=== PATIENT | female | born 2000 | race Caucasian/White ===

== ENCOUNTER 2023-11-07 08:17 | Emergency (ER) | payer OTHER, SELFPAY ==
[2023-11-07 08:22] VITALS: BP 116/72; PULSE 76; RESP 16; TEMP 37.1; O2SAT 97; BMI 29.1
[2023-11-07] MEDS: ONDANSETRON 2 MG/ML inj 4 MG IVP (09:38)
[2023-11-07] MEDS: 0.9 % SODIUM CHLORIDE 1000 ml 1,000 ML IV ×2 (09:38→10:35)
[2023-11-07 09:48] LABS: Basophils Percent Auto 0.3 % (0.0-3.0); Eosinophils Percent Auto 0.3 % (0.0-7.0); Immature Granulocytes Pct Auto 0.2 %; Lymphocytes Percent Auto 21.9 % (20-44); Mean Corpuscular HGB Conc 34 gm/dL (32-36); Mean Corpuscular Hemoglobin 32 pg (26-34); Mean Corpuscular Volume 93 fL (80-100); Monocytes Percent Auto 4.5 % (0.0-11.0); Neutrophils Percent Auto 72.8 % (42.0-72.0); Platelet Count* 304 K/uL (140-440); RDW Coefficient of Variation % 12.1 % (11.5-15.5); Red Blood Count 4.73 m/uL (4.00-5.20); White Blood Count* 11.21 K/uL (4.50-11.00)
[2023-11-07 09:49] LABS: Slide Review Reflex No
[2023-11-07 10:07] LABS: Albumin* 4.7 g/dL (3.3-5.0); Chloride* 105 mmol/L (96-114); Potassium* 4.3 mmol/L (3.6-5.1); Sodium* 136 mmol/L (135-149)
[2023-11-07 10:09] LABS: Amylase* 77 U/L (18-89); Anion Gap 9 mEq/L (7-15); Carbon Dioxide* 22 mmol/L (20-32); Creatinine* 0.5 mg/dL (0.5-1.5); Est. Creatinine Clearance* 162.42; Estimated Glomerular Filt Rate 134 ml/min
[2023-11-07 10:10] LABS: Alanine Aminotransferase* 22 U/L (4-35); Alkaline Phosphatase* 23 U/L (40-150); Aspartate Amino Transferase* 30 U/L (12-35); Bilirubin Total* 0.7 mg/dL (0.1-1.5); Blood Urea Nitrogen* 7 mg/dL (5-24); Calcium* 10.2 mg/dL (8.4-10.6); Glucose* 76 mg/dL (60-115); Total Protein* 8.3 g/dL (6.0-8.3)
--- NOTE | 2023-11-07 11:03 | ED.NAVMDI ---
HPI - Nausea/Vomiting/Diarrhea General Chief complaint: Nausea/Vomiting Stated complaint: 8 weeks , dehydrated Time Seen by Provider: 11/07/23 08:43 History of Present Illness HPI Narrative: Patient is a 23-year-old woman who is 8 weeks with her 1st child. She has refractory nausea and vomiting but no diarrhea. She has had no vaginal discharge or bleeding. No abdominal pain. She contacted her OB provider and was told to come into the emergency room to be assessed and receive IV fluids. She does have Zofran at home which is not been affected to this point. Patient feels like she may be getting dehydrated. No other complaints or concerns no other issues with her . Related Data Home Medications Medication Instructions Recorded Confirmed 11/07/23 ondansetron 4 mg disintegrating 4 mg PO Q8H PRN nausea/vomiting 11/07/23 11/07/23 tablet Allergies Allergy/AdvReac Type Severity Reaction Status Date / Time Penicillins Allergy Intermediate Verified 11/07/23 08:27 Review of Systems Status of ROS: Reports: 10 or more systems reviewed and unremarkable except as noted in History and below Exam Narrative: Exam Narrative: EXAM GENERAL: Patient appears comfortable and well. EYES: No scleral icterus. LYMPH: No supraclavicular or cervical lymphadenopathy. SKIN: Visible skin seen during exam normal or with benign process only. EXT: No dependent lower extremity pedal edema. HEART: Regular rate and rhythm with no murmurs, rubs, or gallops. LUNGS: Clear to auscultation bilaterally with no crackles or wheezes. ABD: Soft, non tender, non distended. PSYCH: Good eye contact, speech is not pressured. Const: Vital Signs, click to edit/add: Vital Signs - 24 hr 11/07/23 08:22 Temperature 98.7 F Pulse Rate [Pulse Oximeter] 76 Respiratory Rate 16 Blood Pressure [Ri ght Upper Arm] 116/72 Pulse Oximetry 97 Oxygen Delivery Me thod Room Air Course Course ED Course: Patient seen examined. 2 L of normal saline given. Laboratory results are reviewed and are stable. Vital Signs Vital signs: Initial Vital Signs Temperature 98.7 F 11/07/23 08:22 Temperature Source Temporal Artery Scan 11/07/23 08:22 Pulse Rate 76 11/07/23 08:22 Respiratory Rate 16 11/07/23 08:22 Blood Pressure 116/72 11/07/23 08:22 Blood Pressure Mean 86 11/07/23 08:22 Blood Pressure Position Sitting 11/07/23 08:22 Pulse Oximetry 97 11/07/23 08:22 Oxygen Delivery Method Room Air 11/07/23 08:22 Vital Signs Temperature 98.7 F 11/07/23 08:22 Pulse Rate 76 11/07/23 08:22 Respiratory Rate 16 11/07/23 08:22 Blood Pressure 116/72 11/07/23 08:22 Pulse Oximetry 97 11/07/23 08:22 Oxygen Delivery Method Room Air 11/07/23 08:22 Temperature 98.7 F 11/07/23 08:22 Pulse Rate 76 11/07/23 08:22 Respiratory Rate 16 11/07/23 08:22 Blood Pressure 116/72 11/07/23 08:22 Pulse Oximetry 97 11/07/23 08:22 Oxygen Delivery Method Room Air 11/07/23 08:22 Medications Administered Medications: Generic Name Dose Route Start Last Admin Trade Name Freq PRN Reason Stop Dose Admin Sodium Chloride 1,000 mls @ 1,000 mls/hr 11/07/23 10:17 11/07/23 10:35 0.9 % Sodium Chloride 1000 Ml IV 11/07/23 11:16 1,000 mls/hr .Q1H RICH[place]D Administration Discontinued Medications Generic Name Dose Route Start Last Admin Trade Name Freq PRN Reason Stop Dose Admin Sodium Chloride 1,000 mls @ 1,000 mls/hr 11/07/23 09:04 11/07/23 10:35 0.9 % Sodium Chloride 1000 Ml IV 11/07/23 10:03 Infused .Q1H R[place] Infusion Ondansetron HCl 4 mg 11/07/23 09:04 11/07/23 09:38 Ondansetron 2 Mg/Ml Inj IVP 11/07/23 09:05 4 mg ONCE ONE Administration MDM - Nausea/Vomiting/Diarrhea MDM Narrative Medical decision making narrative: Patient is a 23-year-old woman who is in her 1st trimester of her 1st . She presents with nausea and vomiting. She has no symptoms of any vaginal pain discharge bleeding or abdominal pain. We did give her 2 L normal saline. Her laboratory studies were personally reviewed by me in her stable. She patient is feeling much better does have 0 DT Zofran at home. Patient can be discharged home with close outpatient follow-up. Will continue try to hydrate at home as well. Differential diagnosis includes but not limited to hyperemesis of gastroenteritis bowel obstruction the cholecystitis appendicitis Lab Data Labs: Lab Results 11/07/23 Range/Units 09:20 WBC 11.21 H (4.50-11.00) K/uL RBC 4.73 (4.00-5.20) m/uL Hgb 15.0 (12.0-16.0) gm/dL Hct 44.0 (33.0-51.0) % MCV 93 (80-100) fL MCH 32 (26-34) pg MCHC 34 (32-36) gm/dL RDW Coeff of Berna 12.1 (11.5-15.5) % Plt Count 304 (140-440) K/uL Neut % (Auto) 72.8 H (42.0-72.0) % Lymph % (Auto) 21.9 (20-44) % [place] % (Auto) 4.5 (0.0-11.0) % Eos % (Auto) 0.3 (0.0-7.0) % Baso % (Auto) 0.3 (0.0-3.0) % Neut # (Auto) 8.20 H (1.7-7.0) K/uL Lymph # (Auto) 2.50 (0.90-2.90) K/uL [place] # (Auto) 0.50 (0.00-0.90) K/UL Eos # (Auto) 0.00 (0.00-0.50) K/uL Baso # (Auto) 0.00 (0.00-0.30) K/uL Abs Immat Gran (auto) 0.00 (0.00-0.30) K/uL Imm/Tot Granulo (auto) 0.2 % Sodium 136 (135-149) mmol/L Potassium 4.3 (3.6-5.1) mmol/L Chloride 105 (96-114) mmol/L Carbon Dioxide 22 (20-32) mmol/L Anion Gap 9 (7-15) mEq/L BUN 7 (5-24) mg/dL Creatinine 0.5 (0.5-1.5) mg/dL Estimated Creat Clear 162.42 Estimated GFR 134 ml/min Glucose 76 (60-115) mg/dL Calcium 10.2 (8.4-10.6) mg/dL Total Bilirubin 0.7 (0.1-1.5) mg/dL AST 30 (12-35) U/L ALT 22 (4-35) U/L Alkaline Phosphatase 23 L (40-150) U/L Total Protein 8.3 (6.0-8.3) g/dL Albumin 4.7 (3.3-5.0) g/dL Amylase 77 (18-89) U/L Discharge Plan Discharge Clinical Impression: Vomiting Condition: Stable Instructions: Acute Nausea and Vomiting (ED) Additional Instructions: Continue hydration at home Zofran as needed Follow-up with your doctor as needed. Activity Level: No Restrictions Discharge Diet: Regular Prescriptions: No Action ondansetron 4 mg tablet,disintegrating 4 mg PO Q8H PRN (Reason: nausea/vomiting) Follow Up/Referrals: Sheri Schwartz DO [Primary Care Provider] - Stand Alone Forms: My[facility] Info Instructions
== END 2023-11-07 11:51 | disposition home or self-care (01) ==
PROVIDERS: Emergency Provider Internal Medicine; PCP Family Medicine
DX: R11.2 Nausea with vomiting, unspecified (principal); Z3A.01 Less than 8 weeks gestation of pregnancy
CPT/HCPCS: 36415; 80053; 82150; 85025; 96374; 99283; J2405; J7030

== ENCOUNTER 2023-12-30 10:57 | Emergency (ER) | payer OTHER, SELFPAY ==
[2023-12-30 11:11] VITALS: BP 114/82; PULSE 72; RESP 16; TEMP 36.1; O2SAT 97; BMI 29.1
--- NOTE | 2023-12-30 11:28 | CRLHL7_ITS ---
For Patients: As a result of the Century Cures Act, medical imaging exams and procedure reports are released immediately into your electronic medical record. You may view this report before your referring provider. If you have questions, please contact your health care provider. INDICATION: , spotting TECHNIQUE: Ultrasound OB pelvis transabdominal. Real-time grayscale images were obtained with static images saved for review. COMPARISON: None FINDINGS: Clinical Age: 14 weeks 6 days (ZELAL[place] 06/23/2024 based off LMP) Sonographic imaging demonstrates a single living intrauterine gestation. Fetus demonstrates a regular cardiac rate of 150 beats per minute. Fetus has a cephalic orientation. The placenta lies posterior with the inferior tip near the cervix. Hypoechoic collection near the inferior margin of the placenta measuring 1.5 x 0.6 x 2.8 centimeters. Cervix is closed measuring 5.7 centimeters. Amniotic fluid volume appears subjectively normal. IMPRESSION: 1. Single live intrauterine gestation with a clinical age of 14 weeks 6 days. 2. Posterior low-lying placenta. This can be reassessed at the time of survey. 3. Small perigestational hemorrhage measuring 1.5 x 0.6 x 2.8 centimeters near the inferior tip of the placenta. Dictated by Gerald Vargas MD @ 12/30/2023 12:00:17 PM (Electronically Signed)
--- NOTE | 2023-12-30 11:28 | ED.GENADULT ---
HPI - General Adult General Chief complaint: Vaginal Bleeding Stated complaint: 16 weeks , bleeding Time Seen by Provider: 12/30/23 11:09 History of Present Illness HPI narrative: c/o spotting and is 16 weeks tomorrow wiped this morning after using the bathroom and had bright red blood, and passed one clot denies N/V/D /F/C. pt stated they have not had any further bleeding contacted OB was told to be seen in the ED 23-year-old young woman presenting to the emergency department with concern of vaginal bleeding. She is currently 16 weeks . While using the bathroom this morning upon wiping notice some bright red blood. There was a small clot as well. No fever or regular abdominal cramping. When called in to triage line/Ob was recommended to be evaluated emergency department. Related Data Home Medications ?Medication ?Instructions ?Recorded ?Confirmed 11/07/23 ondansetron 4 mg disintegrating 4 mg PO Q8H PRN nausea/vomiting 11/07/23 12/30/23 tablet Allergies Allergy/AdvReac Type Severity Reaction Status Date / Time Penicillins Allergy Intermediate Verified 12/30/23 11:11 Review of Systems Status of ROS: Reports: 6 or more systems reviewed and unremarkable except as noted in History and below [facility] Social History Smoking Status: Never smoker Second hand tobacco smoke exposure: No How often do you have a drink containing alcohol: never AUDIT-C Alcohol total score: 0 Non-prescribed substance use: denies use Exam Narrative: Exam Narrative: Pleasant. Of good energy. Here with significant other. Breathing easily. Lungs appear to be clear. Heart in regular rate and rhythm. Abdomen is soft bright minimal discomfort to palpation in the suprapubic area. No unusual masses. Appropriately gravid. exam was not done Const: Vital Signs, click to edit/add: Vital Signs - 24 hr 12/30/23 11:11 Temperature 97.0 F L Pulse Rate [Pulse Oximeter] 72 Respiratory Rate 16 Blood Pressure [Ri ght Upper Arm] 114/82 Pulse Oximetry 97 Oxygen Delivery Me thod Room Air Documenting provider has reviewed patient's vital signs: yes Course Vital Signs Vital signs: Initial Vital Signs Temperature 97.0 F L 12/30/23 11:11 Temperature Source Temporal Artery Scan 12/30/23 11:11 Pulse Rate 72 12/30/23 11:11 Respiratory Rate 16 12/30/23 11:11 Blood Pressure 114/82 12/30/23 11:11 Blood Pressure Mean 92 12/30/23 11:11 Blood Pressure Position High-Fowlers 12/30/23 11:11 Pulse Oximetry 97 12/30/23 11:11 Oxygen Delivery Method Room Air 12/30/23 11:11 Vital Signs Temperature 97.0 F L 12/30/23 11:11 Pulse Rate 72 12/30/23 11:11 Respiratory Rate 16 12/30/23 11:11 Blood Pressure 114/82 12/30/23 11:11 Pulse Oximetry 97 12/30/23 11:11 Oxygen Delivery Method Room Air 12/30/23 11:11 Temperature 97.0 F L 12/30/23 11:11 Pulse Rate 72 12/30/23 11:11 Respiratory Rate 16 12/30/23 11:11 Blood Pressure 114/82 12/30/23 11:11 Pulse Oximetry 97 12/30/23 11:11 Oxygen Delivery Method Room Air 12/30/23 11:11 Medical Decision Making MDM Narrative Medical decision making narrative: At a minimum ultrasound would be reassuring. Bleeding sounds to be reassuringly minimal. Suspect possible subchorionic hemorrhage or cervical bleeding. Does not have symptoms consistent with infectious etiology otherwise like urinary tract infection, PID or other vaginal infection. Ultrasound was done. I discussed findings with promotional representative. Dates would be inconsistent with what Ms. Lowe was initially reporting. And she confirms that she got a little confused when asked earlier. Ultrasound dating would be consistent to what she would revise dating. Not enough bleeding to warrant RhoGAM regardless. Ultrasound confirms perigestational hemorrhage-small TECHNIQUE: Ultrasound OB pelvis transabdominal. Real-time grayscale images were obtained with static images saved for review. COMPARISON: None FINDINGS: Clinical Age: 14 weeks 6 days ([place]ELAL[place] 06/23/2024 based off LMP) Sonographic imaging demonstrates a single living intrauterine gestation. Fetus demonstrates a regular cardiac rate of 150 beats per minute. Fetus has a cephalic orientation. The placenta lies posterior with the inferior tip near the cervix. Hypoechoic collection near the inferior margin of the placenta measuring 1.5 x 0.6 x 2.8 centimeters. Cervix is closed measuring 5.7 centimeters. Amniotic fluid volume appears subjectively normal. IMPRESSION: 1. Single live intrauterine gestation with a clinical age of 14 weeks 6 days. 2. Posterior low-lying placenta. This can be reassessed at the time of survey. 3. Small perigestational hemorrhage measuring 1.5 x 0.6 x 2.8 centimeters near the inferior tip of the placenta. See patient discharge plan for further discussion Lab Data Lab results reviewed: Yes I reviewed the patient's lab results Labs: Lab Results 12/30/23 Range/Units 11:52 Urine Color Yellow (Yellow) Urine Appearance Clear (Clear) Urine pH 7.0 (5.0-8.5) Ur Specific [place] 1.010 (1.000-1.030) Urine Protein Negative (Negative) Urine Glucose (UA) Negative (Negative) Urine Ketones Negative (Negative) Urine Blood 2+ A (Negative) Urine Nitrite Negative (Negative) Urine Bilirubin Negative (Negative) Urine Urobilinogen 0.2 (0.2-1.0) Ur Leukocyte Esterase 1+ A (Negative) Urine RBC 2-5 A (0-2) Urine WBC 2-5 (0-5) Ur Squamous Epith Cells Moderate A (None-Few) Amorphous Sediment Few A (None) Urine Bacteria Few A (None) Discharge Plan Discharge Clinical Impression: Vaginal bleeding before 22 weeks gestation Patient Disposition: Home w/ Parent or Adult Condition: Stable Additional Instructions: Continue to stay well-hydrated. Other than this small bleed as mentioned, your looks good here today at 14 weeks and 6 days. Returns/be seen for marked increase in bleeding, particularly associated with new cramping, soaking through 1 heavy pad an hour for 2 consecutive hours. I will call you if we need to discuss results of your urinalysis. Prescriptions: No Action ondansetron 4 mg tablet,disintegrating 4 mg PO Q8H PRN (Reason: nausea/vomiting) Follow Up/Referrals: Sheri Schwartz DO [Primary Care Provider] - Stand Alone Forms: [employer] Social Info Instructions
[2023-12-30 12:04] LABS: Appearance Urine Clear (Clear); Bilirubin Urine Negative (Negative); Blood Urine 2+ (Negative); Color Urine Yellow (Yellow); Glucose Urine Negative (Negative); Ketones Urine Negative (Negative); Leukocyte Esterase Urine 1+ (Negative); Nitrite Urine Negative (Negative); Protein Urine Negative (Negative); Urobilinogen Urine 0.2 (0.2-1.0)
[2023-12-30 12:27] LABS: Amorphous Sediment Urine Few; Bacteria Urine Few; Squamous Epithelial Cell Urine Moderate (None-Few)
== END 2023-12-30 12:40 | disposition home or self-care (01) ==
PROVIDERS: Emergency Provider Family Medicine; PCP Family Medicine
DX: N93.9 Abnormal uterine and vaginal bleeding, unspecified (principal); Z3A.16 16 weeks gestation of pregnancy
CPT/HCPCS: 76815; 81001; 87086; 99283; 99284

== ENCOUNTER 2024-05-11 08:14 | Outpatient (CLI) | payer BC, SELFPAY ==
[2024-05-11 08:34] VITALS: BP 130/86; PULSE 76
[2024-05-11 08:51] VITALS: RESP 16; TEMP 37
[2024-05-11 09:00] LABS: Hemoglobin* 11.4 gm/dL (12.0-16.0); Mean Corpuscular HGB Conc 34 gm/dL (32-36); Mean Corpuscular Hemoglobin 30 pg (26-34); Mean Corpuscular Volume 91 fL (80-100); Platelet Count* 247 K/uL (140-440); Red Blood Count 3.75 m/uL (4.00-5.20); White Blood Count* 7.24 K/uL (4.50-11.00)
[2024-05-11 09:07] LABS: Slide Review Reflex No
[2024-05-11 09:24] LABS: Total Protein Urine 17 mg/dL
[2024-05-11 09:24] LABS: Aspartate Amino Transferase* 19 U/L (12-35); Creatinine* 0.4 mg/dL (0.5-1.5); Estimated Glomerular Filt Rate 142 ml/min
[2024-05-11 09:25] LABS: Alanine Aminotransferase* 15 U/L (4-35); Blood Urea Nitrogen* 3 mg/dL (5-24)
[2024-05-11 09:26] LABS: Creatinine Urine 43.7 mg/dL; Protein Creatinine Ratio Urine 0.39 (0-0.19)
[2024-05-11 09:36] VITALS: BP 129/79; PULSE 74
--- NOTE | 2024-05-11 10:21 | PC.OBNST ---
NST Note NST Note Start: 05/11/24 08:19 Freq: ONCE Status: Active Protocol: Document 05/11/24 10:08 CUDDYH (Rec: 05/11/24 10:21 CUDDYH [id number]) NST Note 1 Para (# of births) 0 EDC 06/23/24 Gestational Age In Weeks & Days 33 Weeks & 6 Days Patient Presented with Complaint(s) of Other Other Complaints Increased swelling in hands and feet. Reactive Yes Appropriate for Gestational Age Yes RN Jean-Pierre Johnson RN Date 05/11/24 Reactive Yes Appropriate for Gestational Age Yes RN Jean-Pierre Lopez RN Date 05/11/24 OB NST charge Yes Complete NST Note via Write Note Yes The provider's electronic signature indicates the NST is reactive/appropriate for gestational age. *Note to provider: If an addendum is required, open the patient's chart and click on the note under the Nurse/Allied Health tab.
== END 2024-05-11 10:08 | disposition home or self-care (01) ==
LOC: OB OUT 08:14 → OB 08:16
PROVIDERS: PCP Family Medicine; Visit Provider Family Medicine
DX: O26.893 Other specified pregnancy related conditions, third trimester (principal); R22.43 Localized swelling, mass and lump, lower limb, bilateral; R22.33 Localized swelling, mass and lump, upper limb, bilateral; Z3A.33 33 weeks gestation of pregnancy
CPT/HCPCS: 36415; 59025; 82565; 82570; 84156; 84450; 84460; 84520; 85027; G0463

== ENCOUNTER 2024-05-22 07:45 | Outpatient (CLI) | payer BC, SELFPAY ==
[2024-05-22] VITALS (12 sets, daily range): BP systolic 112–128; BP diastolic 72–83; PULSE 65–86; RESP 16; TEMP 36.6; O2SAT 96
[2024-05-22 08:16] LABS: Hematocrit 33.9 % (33.0-51.0); Hemoglobin* 11.2 gm/dL (12.0-16.0); Mean Corpuscular HGB Conc 33 gm/dL (32-36); Mean Corpuscular Hemoglobin 30 pg (26-34); Mean Corpuscular Volume 90 fL (80-100); Platelet Count* 255 K/uL (140-440); Red Blood Count 3.78 m/uL (4.00-5.20); White Blood Count* 8.32 K/uL (4.50-11.00)
[2024-05-22 08:27] LABS: Alanine Aminotransferase* 12 U/L (4-35); Aspartate Amino Transferase* 17 U/L (12-35); Blood Urea Nitrogen* 6 mg/dL (5-24); Creatinine* 0.4 mg/dL (0.5-1.5); Estimated Glomerular Filt Rate 142 ml/min
[2024-05-22 08:30] LABS: Slide Review Reflex No
[2024-05-22 09:06] LABS: Total Protein Urine 20 mg/dL
[2024-05-22 09:07] LABS: Protein Creatinine Ratio Urine 0.13 (0-0.19)
--- NOTE | 2024-05-22 10:56 | PC.OBNST ---
NST Note NST Note Start: 05/22/24 07:47 Freq: ONCE Status: Active Protocol: Document 05/22/24 10:54 BAW (Rec: 05/22/24 10:55 BAW No Response) NST Note 1 Para (# of births) 0 EDC 06/23/24 Gestational Age In Weeks & Days 35 Weeks & 3 Days High Risk Factors High Blood Pressure - Gestational Patient Presented with Complaint(s) of Headache Other Complaints also floaters in vision Reactive Yes Appropriate for Gestational Age Yes YONI Prado RNC Date 05/22/24 Reactive Yes Appropriate for Gestational Age Yes YONI Cárdenas RN Date 05/22/24 OB NST charge Yes Complete NST Note via Write Note Yes The provider's electronic signature indicates the NST is reactive/appropriate for gestational age. *Note to provider: If an addendum is required, open the patient's chart and click on the note under the Nurse/Allied Health tab.
--- NOTE | 2024-05-22 17:08 | PM.OBLDTN ---
OB - Triage/Final Diagnosis Visit Information Date Seen: 05/22/24 Date of evaluation: 05/22/24 Narrative: The patient is a 23 year old 1 para 0 at 35.3 weeks, who presents with hypertension with headache/vision changes. Seen yesterday in clinic. Diagnosed with gestational hypertension. Has not started medications. Home blood pressure today 140s/90s. She had a headache with some vision changes not improved with tylenol. She has had occasional contractions today as well. She presents for pre-eclampsia rule-out. Evaluation Laboratory results: Laboratory Tests 05/22/24 05/22/24 Range/Units 08:35 08:05 WBC 8.32 (4.50-11.00) K/uL RBC 3.78 L (4.00-5.20) m/uL Hgb 11.2 L (12.0-16.0) gm/dL Hct 33.9 (33.0-51.0) % MCV 90 (80-100) fL MCH 30 (26-34) pg MCHC 33 (32-36) gm/dL Plt Count 255 (140-440) K/uL BUN 6 (5-24) mg/dL Creatinine 0.4 L (0.5-1.5) mg/dL Estimated GFR 142 ml/min AST 17 (12-35) U/L ALT 12 (4-35) U/L Urine Creatinine 153.0 mg/dL Protein/Creatinin Ratio 0.13 (0-0.19) Urine Total Protein 20 mg/dL Vital signs: Vital Signs - 24 hr 05/22/24 07:52 05/22/24 07:57 05/22/24 07:58 Temperature Pulse Rate 79 77 Respiratory Rate Blood Pressure 119/76 113/75 Pulse Oximetry 96 05/22/24 08:14 05/22/24 08:22 05/22/24 08:29 Temperature 97.9 F Pulse Rate 69 80 Respiratory Rate 16 Blood Pressure 118/81 117/72 Pulse Oximetry 05/22/24 08:45 05/22/24 09:01 05/22/24 09:14 Temperature Pulse Rate 86 75 75 Respiratory Rate Blood Pressure 128/81 126/79 125/78 Pulse Oximetry 05/22/24 09:29 05/22/24 09:44 05/22/24 10:31 Temperature Pulse Rate 80 69 65 Respiratory Rate Blood Pressure 120/79 112/73 126/83 Pulse Oximetry Comments: FHT: Moderate variability, baseline 125 bpm (had 10 minutes at 180bpm but overall returned to 125bpm), accels, no decels. Nolan occasionally. CV: normal rate and rhythm, no murmurs Lungs: Clear to ausculation bilaterally Ext: 1-2+ pitting edema in lower extremities. Minimal in upper extremities. Final Diagnosis (1) Gestational hypertension: Status: Acute Problem details: Blood pressure and labs normal in hospital. No sign of pre-eclampsia at this time. Has close follow-up next week.
--- NOTE | 2024-05-22 17:17 | W.PM.NSTNOTE ---
NST Note NST Note NST Note: NST Note NST Note Start: 05/22/24 07:47 Freq: ONCE Status: Discharge Protocol: Document 05/22/24 10:54 BAW (Rec: 05/22/24 10:55 BAW No Response) NST Note 1 Para 0 EDC 06/23/24 Gestational Age In Weeks & Days 35 Weeks & 3 Days High Risk Factors High Blood Pressure - Gestational Patient Presented with Complaint(s) of Headache Other Complaints also floaters in vision Reactive Yes Appropriate for Gestational Age Yes YONI Prado RNC Date 05/22/24 Reactive Yes Appropriate for Gestational Age Yes YONI Cárdenas RN Date 05/22/24 OB NST charge Yes Complete NST Note via Write Note Yes Addendum: Reactive NST - FHT: Moderate variability, baseline 125 bpm (had 10 minutes at 180bpm but overall returned to 125bpm), accels, no decels. Nolan occasionally.
== END 2024-05-22 10:36 | disposition home or self-care (01) ==
LOC: OB OUT 07:45 → OB 07:47
PROVIDERS: PCP Family Medicine; Visit Provider Student in an Organized Health Care Education/Training Program
DX: O13.3 Gestational [pregnancy-induced] hypertension without significant proteinuria, third trimester (principal); R51.9 Headache, unspecified; Z3A.35 35 weeks gestation of pregnancy
CPT/HCPCS: 36415; 59025; 82565; 82570; 84156; 84450; 84460; 84520; 85027; G0463

== ENCOUNTER 2024-05-26 14:00 | Inpatient (IN) | payer BC, SELFPAY ==
[2024-05-26] VITALS (122 sets, daily range): BP systolic 118–187; BP diastolic 68–108; PULSE 60–149; RESP 18; TEMP 36.6–37.2; O2SAT 82–98
[2024-05-26 14:02] LABS: Hematocrit 33.2 % (33.0-51.0); Mean Corpuscular HGB Conc 33 gm/dL (32-36); Mean Corpuscular Hemoglobin 30 pg (26-34); Mean Corpuscular Volume 90 fL (80-100); Platelet Count* 255 K/uL (140-440); Red Blood Count 3.68 m/uL (4.00-5.20); White Blood Count* 8.98 K/uL (4.50-11.00)
[2024-05-26] MEDS: LABETALOL HCL 5 MG/ML inj IVP ×5 (14:05→20:04)
[2024-05-26] MEDS: MAGNESIUM IV 4 GM/100 ML PIGGYBACK IVPB (14:14)
[2024-05-26 14:21] LABS: Slide Review Reflex No
[2024-05-26 14:22] LABS: Total Protein Urine 24 mg/dL
[2024-05-26 14:22] LABS: Alanine Aminotransferase* 14 U/L (4-35); Aspartate Amino Transferase* 25 U/L (12-35); Blood Urea Nitrogen* 3 mg/dL (5-24); Creatinine* 0.4 mg/dL (0.5-1.5); Estimated Glomerular Filt Rate 142 ml/min
[2024-05-26 14:25] LABS: Creatinine Urine 41.9 mg/dL; Protein Creatinine Ratio Urine 0.57 (0-0.19)
[2024-05-26] MEDS: MAGNESIUM Infusion 40 GM/1,000 ML IV.SOLN IVPB (14:47)
[2024-05-26] MEDS: BETAMETHASONE SOD PHOS/ACETATE 6 MG/ML ML 12 MG IM (14:56)
[2024-05-26] MEDS: ACETAMINOPHEN 500 MG TABLET 1000 MG PO (15:31)
[2024-05-26] MEDS: miSOPROStoL 25 MCG/0.25 TABLET VAGINAL (15:35)
--- NOTE | 2024-05-26 15:37 | PM.OBHPLI ---
OB - H&P: HPI Labor/Induction History of Present Illness Date Seen: 05/26/24 Chief Complaint: The patient is a 23 year old 1 para 0 at 36.0 weeks gestation by 1st trimester ultrasound, who presents with headache and neck pain for the last 4 days. She has a history of gestational hypertension but has not been diagnosed with preeclampsia. Chief complaint: Maternity Indications for induction: pre-eclampsia Narrative: Charu Lowe is a 23 year old female who is being induced for severe preeclampsia. She has had left neck pain and headaches for the last 4 days. Pain is not improving despite tylenol, heat, and ice. No radiation down her left arm. No vision changes. She has been checking blood pressure regularly at home and was generally in the 130s-140s/70s-80s. She was found in triage to have severe range pressures. History of Present Dating criteria: based on 1st trimester US only care: good care Ultrasounds: normal 1st trimester US and normal mid trimester US complications: preeclampsia Medical complications: none Labs Blood type: A (+) positive Rubella: immune RPR/VDLR: nonreactive GBS status: negative HBsAG: negative Review of Systems Status of ROS: Reports: 10 or more systems reviewed and unremarkable except as noted in History and below Meds Home Medications and Allergies Home Medications ?Medication ?Instructions ?Recorded ?Confirmed ?Type 200 mg PO DAILY 11/07/23 05/26/24 History ondansetron 4 mg disintegrating 4 mg PO Q8H PRN nausea/vomiting 11/07/23 05/26/24 History tablet escitalopram oxalate 5 mg tablet 5 mg PO QAM 05/11/24 05/26/24 History Allergies Allergy/AdvReac Type Severity Reaction Status Date / Time Penicillins Allergy Intermediate Verified 05/22/24 08:14 OB - H&P: Exam Physical Exam: Vital signs: Pulse BP Pulse Ox 74 141/85 H 96 05/26/24 15:26 05/26/24 15:26 05/26/24 15:36 Constitutional: Constitutional: no acute distress Routine HEENT Exam: Head: Present atraumatic ENT: Present mucous membranes moist, normal exam and TM's normal bilaterally Detailed ENT Exam: Ear: Absent canal erythema, canal swelling or TM bulging Routine Neck Exam: Neck: Present full ROM and tenderness; Absent lymphadenopathy or meningismus Comments: Left upper neck Detailed Neck Exam: Thyroids: Thyroid: Present normal Routine Chest/Breast/Axilla Exam: Chest wall: Absent tenderness Routine Respiratory Exam: Respiratory: Present CTA bilaterally; Absent crackles, rales, rhonchi or wheezes Routine Cardiovascular Exam: Cardiovascular: RRR, S1 and S2 Detailed Labor and Delivery Exam: Patient Gravid: Yes Dilation (cm): 1 Effacement (%): 30 Cervix position: posterior Consistency: medium Cervical ripeness score: 2 Comments: Cephalic by bedside ultrasound Fetus (Single): Station: -3 Heart Rate Baseline: 130 Monitor Accelerations: Present Monitor Decelerations: None Human Resources Officer Variability: Moderate (6-25) Routine Extremities Exam: Extremities: Present pedal edema (Mild); Absent calf tenderness Routine Back/Spine/Pelvis Exam: Back/Spine: full ROM Routine Neurological Exam: Present alert, oriented X3, normal reflexes and moving all extremities; Absent sensory deficit, motor deficit or clonus OB - Results Labs Labs: Short CBC 05/26/24 Range/Units 13:53 WBC 8.98 (4.50-11.00) K/uL Hgb 11.0 L (12.0-16.0) gm/dL Hct 33.2 (33.0-51.0) % Plt Count 255 (140-440) K/uL BMP 05/26/24 13:53 BUN 3 L Creatinine 0.4 L Liver Function 05/26/24 Range/Units 13:53 AST 25 (12-35) U/L ALT 14 (4-35) U/L OB - Problem Based A/P Additional Plan (1) Severe pre-eclampsia: Status: Acute Plan: Severe pressures on admission. Positive Urine PCR. OB consulted. Recommend induction for severe preeclampsia. Mag and labetolol per protocol. Betamethasone recommended per Dr. Saini. Will manage expectantly. 1 dose of cytotec placed for induction due to inability to get through internal os. Plan to place cook if cervix is more favorable on recheck after one dose of cytotec. (2) Neck pain: Status: Acute Plan Unknown etiology. Likely musculoskeletal. Will do tylenol q6h for now. Could consider dose of oxycodone if persisting. Heating pad ok as well. Will need further evaluation if not improving after delivery.
--- NOTE | 2024-05-26 16:51 | PM.OBCN1 ---
OB - CN: HPI Date of Consult Date Seen: 05/26/24 Patient: Theresa Patient Consult date: 05/26/24 Requesting Physician: Hong Mead MD Primary Care Provider: Sheri Schwartz DO Consult Narrative Narrative: The patient is a 23 year old G 1 P 0 at 36 weeks gestation that was admitted to the Center on 05/26/24 for induction of labor for indication of preeclampsia with severe features based on blood pressure criteria. She has received her care thus far at [facility]. She has been followed for gestational hypertension for the last 2 weeks. Today, she called [facility] complaining of neck pain, and was called to the Center for further evaluation. Here, she was noted to have Blood pressures for the 1st time in severely elevated ranges. These were treated with IV antihypertensives and she was admitted for induction of labor. Her has been otherwise uncomplicated. She denies any visual changes or pain in her right upper quadrant. She denies any other medical problems. She is GBS negative. History of Present complications: preeclampsia History History 1 Elective abortions Para 0 Spontaneous abortions Hx # Term Pregnancies Ectopic pregnancies Hx # Pregnancies Multiple births Number of Living Children 0 Labs Blood type: A (+) positive Rubella: immune RPR/VDLR: nonreactive GBS status: negative HBsAG: negative PFSH PFSH Social History What is your current living situation?: I presently have a place to live Problems where you live: no known problems In the past 12 months, utilities in danger of being shut off: no In past 12 months, lack of transportation kept you from medical appts, meetings, work, or getting things needed for daily living: no In the past 12 mos, have been you worried that your food would run out before you had money to buy more?: never true In the past 12 mos, the food you bought just didn't last and you didn't have money to buy more?: never true Smoking Status: Former smoker Second hand tobacco smoke exposure: No How often do you have a drink containing alcohol: never AUDIT-C Alcohol total score: 0 Non-prescribed substance use: denies use How often does anyone, including family, friends and others, physically hurt you: never How often does anyone, including family, friends and others, insult or talk down to you: never How often does anyone, including family, friends and others, threaten you with harm: never How often does anyone, including family, friends and others, scream or curse at you: never Meds Home Medications and Allergies Home Medications ?Medication ?Instructions ?Recorded ?Confirmed ?Type 200 mg PO DAILY 11/07/23 05/26/24 History ondansetron 4 mg disintegrating 4 mg PO Q8H PRN nausea/vomiting 11/07/23 05/26/24 History tablet escitalopram oxalate 5 mg tablet 5 mg PO QAM 05/11/24 05/26/24 History Allergies Allergy/AdvReac Type Severity Reaction Status Date / Time Penicillins Allergy Intermediate Verified 05/22/24 08:14 OB - H&P: Exam Physical Exam: Vital signs: Pulse BP Pulse Ox 70 146/85 H 96 05/26/24 16:44 05/26/24 16:44 05/26/24 16:46 Narrative: Physical exam: General: No acute distress Psych: Alert and oriented x3, full affect Heart: Regular rate and rhythm, no murmur rub or gallop Lungs: Clear to auscultation bilaterally Abdomen: Soft, nontender, gravid, EFW 6 lb Lower extremities: 4+ edema in bilateral ankles Given uncertain lie on abdominal exam, bedside ultrasound is performed, confirming cephalic lie OB - Results Labs Labs: Short CBC 05/26/24 Range/Units 13:53 WBC 8.98 (4.50-11.00) K/uL Hgb 11.0 L (12.0-16.0) gm/dL Hct 33.2 (33.0-51.0) % Plt Count 255 (140-440) K/uL BMP 05/26/24 13:53 BUN 3 L Creatinine 0.4 L Liver Function 05/26/24 Range/Units 13:53 AST 25 (12-35) U/L ALT 14 (4-35) U/L Protein to creatinine ratio 0.57 OB - CN: A/P Assessment and Plan (1) Severe pre-eclampsia: Status: Acute (2) Neck pain: Status: Acute Plan I agree with Dr. Mcginnis for its management strategy, which is as follows: Admit for induction of labor. Should she require cervical ripening, I did recommend consideration of Cook catheter due to ease of removal in cases of abnormal heart rate. Magnesium sulfate for seizure prophylaxis, to continue until 24 hours . IV antihypertensives for severe range blood pressures. Labetalol would be a fine choice in her case. Serial HELLP labs. Strict in's and out's, totaled every 4 hours. I recommend limitation of oral intake to 2 L a day. Continues monitoring. Betamethasone, with 1st dose to be given now and 2nd in 24 hours if she is still . The OB team will be available for any further concerns or questions brought to us from Charu's team. I appreciate this consult.
[2024-05-26] MEDS: SODIUM CHLORIDE NASAL SPRAY 1 SPRAY NOSTRIL-B (18:50)
--- NOTE | 2024-05-26 19:56 | PM.OBPNL ---
Subjective Date Seen: 05/26/24 Narrative: Charu is a 23 yo at 36 weeks gestation here for IOL for severe preeclampsia. She has been started on magnesium and has been getting labetalol for severe range BP per protocol. She had one dose of cytotec and cervix is now 1/50/-3, mid position. Cook catheter placed without difficulty and 60 mL placed in both intrauterine and intravaginal balloons. Patient tolerated this well. She is feeling contractions which she likens to period cramping. Objective Vital Signs: Last Vital Signs Temp 98 F 05/26/24 18:19 Pulse 75 05/26/24 19:54 BP 164/90 H 05/26/24 19:54 Pulse Ox 98 05/26/24 19:24 Pelvic Exam Dilation (cm): 1 Effacement (%): 50 Station: -3 Contractions Monitor mode: None Contraction Frequency: 3 Contraction pattern: Irregular Contraction intensity: Mild Assessment Assessment: induction ongoing Station: -3 Status: Category l Heart Rate Baseline: 130 Integrated Specialist Variability: Moderate (6-25) Monitor Accelerations: Present Monitor Decelerations: None Plan Plan: Continue magnesium for severe preeclampsia. Labetalol for BP management per protocol. Cook catheter with pitocin overnight for cervical ripening. Epidural for pain control once in active labor. Hopefully will be able to AROM in the morning.
[2024-05-26] MEDS: HYDRALAZINE HCL 20 MG/ML inj 10 MG IVP (20:17)
[2024-05-26] MEDS: hydrOXYzine pamoate 25 MG CAPSULE 100 MG PO (22:02)
[2024-05-26] MEDS: CALCIUM CARBONATE 500 MG CHEW PO (22:02)
[2024-05-26] MEDS: MORPHINE 10 MG/ML inj IM (22:02)
[2024-05-26] MEDS: LACTATED RINGERS 1000 ML 1,000 ML 75 ML IV (22:03)
[2024-05-26 22:29] LABS: Alanine Aminotransferase* 18 U/L (4-35); Aspartate Amino Transferase* 25 U/L (12-35); Blood Urea Nitrogen* 4 mg/dL (5-24); Creatinine* 0.4 mg/dL (0.5-1.5); Estimated Glomerular Filt Rate 142 ml/min
[2024-05-26 22:39] LABS: Magnesium* 4.1 mg/dL (1.5-2.6)
[2024-05-26 23:01] LABS: Hemoglobin* 11.6 gm/dL (12.0-16.0); Mean Corpuscular HGB Conc 33 gm/dL (32-36); Mean Corpuscular Hemoglobin 30 pg (26-34); Mean Corpuscular Volume 90 fL (80-100); Platelet Count* 276 K/uL (140-440); Red Blood Count 3.88 m/uL (4.00-5.20); White Blood Count* 12.21 K/uL (4.50-11.00)
[2024-05-26 23:03] LABS: Slide Review Reflex No
[2024-05-26] MEDS: LIDOCAINE 2% (PF) 5 ML VIAL EPIDURAL (23:28)
[2024-05-26] MEDS: ROPIVACAINE 0.2 % PF 10 ML INJ 20 MG EPIDURAL (23:28)
[2024-05-26] MEDS: ROPIVACAINE 0.2% 100 ml 100 ML 12 MG EPIDURAL (23:32)
--- NOTE | 2024-05-26 23:41 | PM.ANBPRC ---
[facility] Social History What is your current living situation?: I presently have a place to live Problems where you live: no known problems In the past 12 months, utilities in danger of being shut off: no In past 12 months, lack of transportation kept you from medical appts, meetings, work, or getting things needed for daily living: no In the past 12 mos, have been you worried that your food would run out before you had money to buy more?: never true In the past 12 mos, the food you bought just didn't last and you didn't have money to buy more?: never true Smoking Status: Former smoker Second hand tobacco smoke exposure: No How often do you have a drink containing alcohol: never AUDIT-C Alcohol total score: 0 Non-prescribed substance use: denies use How often does anyone, including family, friends and others, physically hurt you: never How often does anyone, including family, friends and others, insult or talk down to you: never How often does anyone, including family, friends and others, threaten you with harm: never How often does anyone, including family, friends and others, scream or curse at you: never Meds Home Medications and Allergies Home Medications ?Medication ?Instructions ?Recorded ?Confirmed ?Type 200 mg PO DAILY 11/07/23 05/26/24 History ondansetron 4 mg disintegrating 4 mg PO Q8H PRN nausea/vomiting 11/07/23 05/26/24 History tablet escitalopram oxalate 5 mg tablet 5 mg PO QAM 05/11/24 05/26/24 History Allergies Allergy/AdvReac Type Severity Reaction Status Date / Time Penicillins Allergy Intermediate Verified 05/26/24 22:30 Results Labs Labs: Laboratory Results - last 24 hr 05/26/24 05/26/24 05/26/24 13:45 13:53 22:08 WBC 8.98 12.21 H RBC 3.68 L 3.88 L Hgb 11.0 L 11.6 L Hct 33.2 35.0 MCV 90 90 MCH 30 30 MCHC 33 33 Plt Count 255 276 BUN 3 L 4 L Creatinine 0.4 L 0.4 L Estimated GFR 142 142 Magnesium 4.1 H* AST 25 25 ALT 14 18 Urine Creatinine 41.9 Protein/Creatinin Ratio 0.57 H Urine Total Protein 24 Blood Type A Positive Antibody Screen NEGATIVE Vital Signs Vital Signs: Last Vital Signs Temp 98.9 F 05/26/24 22:14 Pulse 90 05/26/24 23:39 Resp 18 05/26/24 22:14 BP 125/75 05/26/24 23:39 Pulse Ox 97 05/26/24 20:54 Weight: 68.039 kg Height: 167.64 cm Anesthesia Procedures Epidural Insertion Patient Location: OB Start Time: 22:50 Stop Time: 23:42 Start Date: 05/26/24 Stop Date: 05/26/24 Reason for Block: procedure for pain Patient Position: sitting Performed By: Robel Cee Preanesthetic Checklist: IV checked, risks and benefits discussed, surgical consent, monitors and equipment checked, pre-op evaluation, timeout performed and anesthesia consent Prep: chlorhexidine gluconate Monitoring: blood pressure monitoring, continuous pulse oximetry and heart rate Approach: midline Vertebral Space: lumbar (1-5) Epidural Technique: JENNIFER air Needle Type: Tuohy needle Injection Technique: continuous catheter Needle gauge: 17 Needle Length (cm): 10 cm Needle Insertion Depth (cm): 8 Catheter Gauge: 19 Catheter Type: multi-orifice Catheter at skin depth (cm): 14 Test Dose Result: negative and lidocaine 1.5% with epinephrine 1 to 200,000
[2024-05-27] VITALS (73 sets, daily range): BP systolic 107–158; BP diastolic 59–97; PULSE 89–117; RESP 16–20; TEMP 36.6–37.2; O2SAT 96–98
[2024-05-27] MEDS: CALCIUM CARBONATE 500 MG CHEW PO ×2 (01:30→10:08)
[2024-05-27 04:15] LABS: Hematocrit 33.7 % (33.0-51.0); Hemoglobin* 11.1 gm/dL (12.0-16.0); Mean Corpuscular HGB Conc 33 gm/dL (32-36); Mean Corpuscular Hemoglobin 30 pg (26-34); Mean Corpuscular Volume 90 fL (80-100); Platelet Count* 252 K/uL (140-440); Red Blood Count 3.73 m/uL (4.00-5.20); White Blood Count* 13.49 K/uL (4.50-11.00)
[2024-05-27 04:18] LABS: Slide Review Reflex No
[2024-05-27 04:42] LABS: Alanine Aminotransferase* 16 U/L (4-35); Aspartate Amino Transferase* 57 U/L (12-35); Blood Urea Nitrogen* 3 mg/dL (5-24); Creatinine* 0.4 mg/dL (0.5-1.5); Est. Creatinine Clearance* 203.02; Estimated Glomerular Filt Rate 142 ml/min
[2024-05-27 04:52] LABS: Magnesium* 4.6 mg/dL (1.5-2.6)
--- NOTE | 2024-05-27 05:11 | PM.OBPNL ---
Subjective Date Seen: 05/27/24 Narrative: Patient had significant increase in painful contractions late last night and requested an epidural. This worked well for her for pain management for several hours, but is now feeling contractions. Her cook catheter came out spontaneously at 0411, she had a moderate amount of vaginal bleeding with this and I was called to assess. she was 4/80/-3 and underwent AROM with return of clear fluid. This allowed for IUPC placement since nursing was having difficulty tracing contractions. Objective Vital Signs: Last Vital Signs Temp 98.3 F 05/27/24 04:44 Pulse 107 H 05/27/24 05:02 Resp 18 05/27/24 03:18 BP 128/79 05/27/24 05:02 Pulse Ox 97 05/26/24 20:54 Pelvic Exam Dilation (cm): 5 Effacement (%): 80 Station: -3 Contractions Monitor mode: Internal Contraction Frequency: Q2-3 minutes Contraction pattern: Irregular Contraction intensity: Mild Assessment Station: -3 Amniotic Membrane Status: AROM (clear fluid) Status: Category l Heart Rate Baseline: 130 Long-Term Variability: Moderate (6-25) Monitor Accelerations: Absent Monitor Decelerations: Early Plan Plan: at 36+1 with preeclampsia with severe range BPs. AST now 57 (normal up to 35), remaining pre-e labs within normal range. Continue magnesium, BP management per protocol and scheduled labs. Patient is having regular contractions without pitocin, will continue expectant management, however will add pitocin if inadequate labor/lack of cervical change.
[2024-05-27] MEDS: MAG HYDROX/ALUMINUM HYD/SIMETH 30 ML ORAL.SUSP PO (05:14)
[2024-05-27] MEDS: ROPIVACAINE 0.2% 100 ml 100 ML 12 MG EPIDURAL (06:20)
--- NOTE | 2024-05-27 06:25 | P.OBPN_ITS ---
Subjective Date Seen: 05/27/24 Narrative: Charu is a 23 yo at 36+1 here for IOL for severe preeclampsia. She has had minimal pain relief since epidural bolus by anesthesia. Contractions are strong, regular. Objective Vital Signs: Last Vital Signs Temp 98.6 F 05/27/24 05:53 Pulse 96 05/27/24 06:23 Resp 18 05/27/24 05:53 BP 139/83 05/27/24 06:23 Pulse Ox 97 05/26/24 20:54 Pelvic Exam Dilation (cm): 6 Effacement (%): 90 Station: -2 Contractions Monitor mode: Internal Contraction Frequency: Q2 minutes Contraction pattern: Irregular Contraction intensity: Strong/Firm Assessment Assessment: active labor Station: -2 Amniotic Membrane Status: AROM (clear fluid) Status: Category ll Heart Rate Baseline: 130 Group Home Variability: Moderate (6-25) Monitor Accelerations: Absent Monitor Decelerations: None Plan Plan: Patient is in active labor after cook catheter and AROM. Will continue expectant management as she is making adequate cervical change without pitocin. Continue magnesium, BP management per protocol and scheduled labs.
[2024-05-27] MEDS: OXYTOCIN 30 unit/500 ML in NS 30 UNIT/500 ML BAG 300 UNIT IVPB (07:40)
[2024-05-27] MEDS: LIDOCAINE 1 % PF 30 ML INJECTION (08:12)
--- NOTE | 2024-05-27 08:13 | W.PM.VAGDEL1 ---
Procedure Delivery date: 05/27/24 Procedure Done: Global Events: Pre-Eclampsia Intrapartal Events: Labor Induction and Excessive Bleeding Delivery augmentation: rupture of membranes Delivery monitor: external FHT and internal uterine Route of delivery: Laceration description: Vaginal - 2nd Degree Delivery repair: Vicryl (3-0) Estimated blood loss (mL): 1,300 Anesthesia type: Epidural Disposition: floor Narrative: The patient is a 23 year-old admitted on 05/26/2024 at 36 Weeks, 0 Days gestation for severe preeclampsia.? Cervical exam on admission was 1 cm/20 % effaced/-3 station with membranes intact in vertex presentation.? Contractions were absent.? heart rate demonstrated baseline 130 bpm with moderate variability, + accelerations, - decelerations; a category 1 tracing.? She had 1 dose of vaginal cytotec followed by cook catheter placement. She began having regular contractions with the cook catheter and received an epidural for labor analgesia t 2332. Cook fell out at 0411 on 05/27/24. AROM occurred at 0451 with clear fluid. ? Labor Analgesia:? epidural ? Pitocin:?started after delivery of ? Labor onset:? 0451 ? Complete:? 0722 ? Pushing:? 072 ? heart tones during second stage were category 2. ? At 0735 a viable female delivered in vertex OA presentation over intact perineum via spontaneous vaginal delivery.? was placed on maternal abdomen.? Cord was clamped and cut after a 30-60 second delay.? Nose and mouth were bulb suctioned.? weight [id number].? 8 at 1 minute and 9 at 5 minutes.? Shoulder dystocia: no.? Nuchal cord: no. ? Placenta delivered spontaneously and complete at 0740 with a 3 vessel cord. At this time she was noted to be briskly bleeding with uterine atony. Bimanual massage in addition to rectal cytotec given with improvement ? Mother and were stable after delivery. ? Lacerations:? 2nd degree, repaired with 3-0 vicryl suture. ? Blood loss: 1300 mL. Blood loss measurement type: QBL ? Sponge and needles counts are correct. Infant Infant Gender: Female presentation: vertex Placental Delivery Description: Spontaneous Cord Description: 3 Vessels
[2024-05-27] MEDS: miSOPROStoL 800 MCG/4 TABLET PR (08:14)
[2024-05-27] MEDS: 0.9 % SODIUM CHLORIDE 1000 ml 1,000 ML 75 ML IV ×2 (09:20→22:26)
[2024-05-27 10:02] LABS: Hematocrit 31.2 % (33.0-51.0); Hemoglobin* 10.2 gm/dL (12.0-16.0); Mean Corpuscular HGB Conc 33 gm/dL (32-36); Mean Corpuscular Hemoglobin 30 pg (26-34); Mean Corpuscular Volume 91 fL (80-100); Platelet Count* 286 K/uL (140-440); Red Blood Count 3.43 m/uL (4.00-5.20); White Blood Count* 21.17 K/uL (4.50-11.00)
[2024-05-27 10:04] LABS: Slide Review Reflex No
[2024-05-27 10:18] LABS: Aspartate Amino Transferase* 28 U/L (12-35); Blood Urea Nitrogen* 3 mg/dL (5-24); Creatinine* 0.5 mg/dL (0.5-1.5); Est. Creatinine Clearance* 162.42; Estimated Glomerular Filt Rate 134 ml/min
[2024-05-27] MEDS: MAGNESIUM Infusion 40 GM/1,000 ML IV.SOLN IVPB (10:39)
[2024-05-27 11:01] LABS: Alanine Aminotransferase* 31 U/L (4-35)
[2024-05-27 11:03] LABS: Magnesium* 4.7 mg/dL (1.5-2.6)
[2024-05-27] MEDS: IBUPROFEN 600 MG TABLET PO ×2 (12:44→19:04)
[2024-05-27] MEDS: ACETAMINOPHEN 500 MG TABLET 1000 MG PO ×2 (15:50→23:26)
[2024-05-27] MEDS: DOCUSATE SODIUM 100 MG CAPSULE PO (15:52)
[2024-05-27 15:58] LABS: Hematocrit 29.2 % (33.0-51.0); Hemoglobin* 9.7 gm/dL (12.0-16.0); Mean Corpuscular HGB Conc 33 gm/dL (32-36); Mean Corpuscular Hemoglobin 30 pg (26-34); Mean Corpuscular Volume 91 fL (80-100); Platelet Count* 277 K/uL (140-440); Red Blood Count 3.22 m/uL (4.00-5.20); White Blood Count* 18.38 K/uL (4.50-11.00)
[2024-05-27 16:03] LABS: Slide Review Reflex No
[2024-05-27 16:14] LABS: Aspartate Amino Transferase* 25 U/L (12-35); Blood Urea Nitrogen* 3 mg/dL (5-24); Creatinine* 0.6 mg/dL (0.5-1.5); Est. Creatinine Clearance* 135.35; Estimated Glomerular Filt Rate 128 ml/min
[2024-05-27 16:22] LABS: Magnesium* 5.1 mg/dL (1.5-2.6)
[2024-05-27 17:05] LABS: Alanine Aminotransferase* 25 U/L (4-35)
[2024-05-27 21:58] LABS: Hematocrit 28.6 % (33.0-51.0); Hemoglobin* 9.5 gm/dL (12.0-16.0); Mean Corpuscular HGB Conc 33 gm/dL (32-36); Mean Corpuscular Hemoglobin 30 pg (26-34); Mean Corpuscular Volume 91 fL (80-100); Platelet Count* 270 K/uL (140-440); Red Blood Count 3.14 m/uL (4.00-5.20); White Blood Count* 16.74 K/uL (4.50-11.00)
[2024-05-27 22:10] LABS: Slide Review Reflex No
[2024-05-27 22:12] LABS: Aspartate Amino Transferase* 25 U/L (12-35); Creatinine* 0.6 mg/dL (0.5-1.5); Est. Creatinine Clearance* 135.35; Estimated Glomerular Filt Rate 128 ml/min
[2024-05-27 22:13] LABS: Alanine Aminotransferase* 16 U/L (4-35); Blood Urea Nitrogen* 3 mg/dL (5-24)
[2024-05-28] VITALS (17 sets, daily range): BP systolic 127–150; BP diastolic 77–98; PULSE 77–95; RESP 16–20; TEMP 36.6–37.1; O2SAT 95–97
[2024-05-28] MEDS: NIFEdipine 30 MG TAB.ER.24 PO ×2 (03:20→08:43)
[2024-05-28 06:37] LABS: Hemoglobin* 8.7 gm/dL (12.0-16.0)
[2024-05-28] MEDS: IBUPROFEN 600 MG TABLET PO (06:39)
--- NOTE | 2024-05-28 07:56 | PM.OBPNVD1 ---
OB - PN:Subj Subjective Time Seen by Provider: 07:30 Date Seen: 05/28/24 Interval history: G1, now P1 s/p at 36wks, induced for severe preeclampsia, delivered yesterday morning 07. On magnesium, will be d/c's after 24 hours which is this morning. pt reports overall feeling good. Tired from working on latching/nursing overnight. Difficulty with latching, using donor milk. Ambulating without difficulty. no lightheadedness. Tolerating orals. Voiding. Reports bleeding mild. No significant pain. No headache. OB - PN: Obj Exam Physical Exam: Vital signs: Temp Pulse Resp BP Pulse Ox O2 Del Method 98.7 F 95 16 137/89 97 Room Air 05/28/24 06:40 05/28/24 06:40 05/28/24 06:40 05/28/24 06:40 05/27/24 17:41 05/28/24 00:33 Constitutional: Constitutional: no acute distress and cooperative Routine Abdominal Exam: Fundus: Present firm (1cm below umbilicus) OB - PN: Obj Data Labs Labs: Laboratory Results - last 24 hr 05/27/24 05/27/24 05/27/24 09:52 15:53 21:54 WBC 21.17 H 18.38 H 16.74 H RBC 3.43 L 3.22 L 3.14 L Hgb 10.2 L 9.7 L 9.5 L Hct 31.2 L 29.2 L 28.6 L MCV 91 91 91 MCH 30 30 30 MCHC 33 33 33 Plt Count 286 277 270 BUN 3 L 3 L 3 L Creatinine 0.5 0.6 0.6 Estimated Creat Clear 162.42 135.35 135.35 Estimated GFR 134 128 128 Magnesium 4.7 H* 5.1 H* 5.0 H* AST 28 25 25 ALT 31 25 16 05/28/24 06:27 WBC RBC Hgb 8.7 L Hct MCV MCH MCHC Plt Count BUN Creatinine Estimated Creat Clear Estimated GFR Magnesium AST ALT OB - PN: A/P Delivery Assessment and Plan (1) Severe pre-eclampsia: Status: Acute Assessment and Plan: G1, now P1 s/p at 36wks, induced for severe preeclampsia, delivered yesterday morning 0735. -on magnesium for 24hours , will be stopped this morning around 0740 -nifedipine 30mg ER started 3am this morning. BP's since 127/77, 137/89. Discussed goal bp's with mom. Plan have nurse recheck bp this morning, if remains >130/80, would add additional 30mg nifedipine ER now and then plan 60mg ER tomorrow morning scheduled. Discussed bp can peak 3-5 days post delivery and will need verify good control prior to d/c home with close followup. -continue work on latching, consult when able (2) Neck pain: Status: Acute
[2024-05-28] MEDS: DOCUSATE SODIUM 100 MG CAPSULE PO (08:44)
[2024-05-28] MEDS: ACETAMINOPHEN 500 MG TABLET 1000 MG PO (11:25)
--- NOTE | 2024-05-28 13:12 | PM.ANPOST ---
Post Anesthesia Note Post Anesthesia Note Patient seen: Inpatient Respiratory Status: adequate Cardiovascular Status: adequate Mental Status: baseline Pain: adequate Temp: baseline Anesthetic awareness: N/A Complications: none Follow care: none
[2024-05-28] MEDS: ESCITALOPRAM 10 MG TABLET 5 MG PO (13:14)
[2024-05-28] MEDS: LABETALOL HCL 100 MG TABLET PO ×2 (14:18→20:59)
[2024-05-29 01:32] VITALS: BP 131/85; PULSE 95; RESP 22; TEMP 36.9; O2SAT 95
[2024-05-29 04:25] VITALS: BP 128/83; PULSE 95; RESP 20; O2SAT 96
[2024-05-29] MEDS: IBUPROFEN 600 MG TABLET PO (05:44)
[2024-05-29 07:37] VITALS: BP 136/86; PULSE 84; RESP 18; TEMP 36.9; O2SAT 97
[2024-05-29] MEDS: NIFEdipine 30 MG TAB.ER.24 60 MG PO (08:07)
[2024-05-29] MEDS: DOCUSATE SODIUM 100 MG CAPSULE PO (08:08)
--- NOTE | 2024-05-29 08:27 | P.DS_ITS ---
DS: Providers Provider Date Seen: 05/29/24 Date of admission: 05/26/24 14:00 Primary care physician: Sheri Schwartz DO Admitting Clinician: Hong Mead MD Attending Physician on discharge: Hong Mead MD DS: Diagnosis Discharge Diagnosis (1) Severe pre-eclampsia: Status: Acute Exam Const: Vital Signs, click to edit/add: Vital Signs - 24 hr 05/28/24 08:41 05/28/24 09:02 05/28/24 11:04 Temperature Pulse Rate [Pulse Oximeter] Respiratory Rate Blood Pressure [Ri ght Arm] 147/93 H 132/87 137/91 H Pulse Oximetry Oxygen Delivery Me thod 05/28/24 11:51 05/28/24 13:09 05/28/24 14:16 Temperature 98.6 F Pulse Rate [Pulse Oximeter] 92 Respiratory Rate 16 Blood Pressure [Ri ght Arm] 138/95 H 149/97 H 143/90 H Pulse Oximetry 97 Oxygen Delivery Me thod Room Air 05/28/24 15:35 05/28/24 16:28 05/28/24 18:55 Temperature 98.3 F Pulse Rate [Pulse Oximeter] 81 Respiratory Rate 16 Blood Pressure [Ri ght Arm] 150/89 H 132/88 129/86 Pulse Oximetry 96 Oxygen Delivery Me thod Room Air 05/28/24 20:55 05/28/24 22:59 05/29/24 01:32 Temperature 98.6 F 98.4 F Pulse Rate [Pulse Oximeter] 90 84 95 Respiratory Rate 16 20 22 Blood Pressure [Ri ght Arm] 144/95 H 127/82 131/85 Pulse Oximetry 95 95 95 Oxygen Delivery Me thod Room Air Room Air Room Air 05/29/24 04:25 05/29/24 07:37 Temperature 98.5 F Pulse Rate [Pulse Oximeter] 95 84 Respiratory Rate 20 18 Blood Pressure [Ri ght Arm] 128/83 136/86 Pulse Oximetry 96 97 Oxygen Delivery Me thod Room Air Room Air Documenting provider has reviewed patient's vital signs: yes Common normals: no apparent distress HENMT: Common normals: normocephalic and hearing grossly normal bilaterally Head and scalp: normal to inspection and normocephalic Neck & C-Spine: Common normals: full ROM Resp: Common normals: normal respiratory effort, no retractions and clear to auscultation bilaterally Auscultation: clear to auscultation bilaterally Cardio: Common normals: regular rate, regular rhythm and no murmurs Rate: regular rate Rhythm: regular rhythm GI: Common normals: soft to palpation Inspection: normal to inspection Palpation: soft; non-tender : Uterus: U/2 and firm Lochia: scant Extremity: General: edema (Mild) OB - DS: Summary Hospital Course Hospital Course: The patient is a 23 year old G 1 P 0 at 36 weeks gestation that was admitted to the Center on 05/26/24 for severe preeclampsia. She was started on magnesium and labetalol and induced with cytotec, cook catheter, and AROM. She had an uncomplicated vaginal delivery. She delivered a viable female . She is breast feeding. Her blood pressures have been difficult to control post but is now in range over the last day with 100 mg of labetalol twice a day and nifedipine 60 mg daily. Peripartum Data Infant delivery method: Vaginal Laceration description: Perineal - 2nd Degree complications: none [place] Infant Gender: Female Discharge Plan: Home Time Spent with Patient Time attestation: Total time spent providing and/or coordinating discharge services: Discharge Plan Discharge Disposition: Home, Self-Care Date of Admission: 05/26/24 14:00 Primary Care Provider: Sheri Schwartz Condition: Improved Anticipated Discharge Date/Time: 05/29/24 08:32 Discharge Medications: New nifedipine 30 mg Tablet Extended Release 24hr 60 mg PO 0700 Qty: 30 0RF labetalol 100 mg Tablet 100 mg PO BID Qty: 60 0RF Continued 200 mg PO DAILY escitalopram oxalate 5 mg tablet 5 mg PO QAM Discontinued ondansetron 4 mg tablet,disintegrating 4 mg PO Q8H PRN (Reason: nausea/vomiting) Discharge Orders: Discharge Order (Routine); Ordered 05/29/24 Ordered By: Hong Mead Patient Education: Preeclampsia and Eclampsia After Delivery (GEN) Activity Level: Activity as Tolerated Discharge Diet: Regular Follow Up Appointments: Sheri Schwartz DO [Primary Care Provider] - Forms: [employer] [facility] Info Instructions Discharge Comments: Follow up with Dr. Rivero in 6 weeks
[2024-05-29] MEDS: LABETALOL HCL 100 MG TABLET PO (09:06)
[2024-05-29] MEDS: ESCITALOPRAM 10 MG TABLET 5 MG PO (09:07)
[2024-05-29 09:08] VITALS: BP 131/84
== END 2024-05-29 11:21 | disposition home or self-care (01) | DRG 560 ==
LOC: OB OUT 14:46 → OB 14:46
PROVIDERS: Family Medicine; Admitting Provider Surgery; PCP Family Medicine; Visit Provider Surgery
DX: O14.14 Severe pre-eclampsia complicating childbirth (principal); Z3A.36 36 weeks gestation of pregnancy; Z37.0 Single live birth; M54.2 Cervicalgia; O62.2 Other uterine inertia; O13.4 Gestational [pregnancy-induced] hypertension without significant proteinuria, complicating childbirth
CPT/HCPCS: 01967; 36415; 59200; 82565; 82570; 83735; 84156; 84450; 84460; 84520; 85018; 85027; 86592; 86850; 86900; 86901; 88307; A9270; C1726; J0360; J0702; J2003; J2270; J2371; J2795; J3475; J7030; J7120